=== PATIENT | male | born 1950 | race Caucasian/White ===

== ENCOUNTER 2018-07-01 23:48 | Observation (INO) | payer OTHER, MEDICARE ==
[2018-07-02 01:50] LABS: Troponin I Less than 0.010 ng/mL (< 0.028)
[2018-07-02 04:43] LABS: Troponin I Less than 0.010 ng/mL (< 0.028)
[2018-07-02] MEDS ORDERED: Ondansetron ODT 4 MG TAB SL PRN (04:59)
[2018-07-02] MEDS ORDERED: Ondansetron PF 4 MG/2 ML Vial IVP PRN ×2 (04:59→06:59)
[2018-07-02] MEDS ORDERED: Aspirin 325 MG TAB PO SCH (05:00)
[2018-07-02] MEDS ORDERED: Bisacodyl 5 MG TAB PO PRN (06:59)
[2018-07-02] MEDS ORDERED: Dextrose 5% in Water 1,000 ML IV PRN (06:59)
[2018-07-02] MEDS ORDERED: Acetaminophen 325 MG TAB PO PRN (06:59)
[2018-07-02] MEDS ORDERED: Calcium Carbonate 500 MG ChewTAB PO PRN (06:59)
[2018-07-02] MEDS ORDERED: HYDROcodone/Acetaminophen 5/325 mg Tablet PO PRN (06:59)
[2018-07-02] MEDS ORDERED: Dextrose 50% Abboject 50 ML SYRINGE SLOW IVP PRN (06:59)
[2018-07-02] MEDS ORDERED: Bisacodyl 10 MG SUPP PR PRN (06:59)
[2018-07-02] MEDS ORDERED: Zolpidem Tartrate 5 MG TAB PO PRN (06:59)
[2018-07-02] MEDS ORDERED: Loperamide HCl 2 MG CAP PO PRN (06:59)
[2018-07-02] MEDS ORDERED: HumaLOG 300 UNITS/3 ML VIAL SC PRN (06:59)
[2018-07-02] MEDS ORDERED: Ondansetron ODT 4 MG TAB PO PRN (06:59)
[2018-07-02] MEDS: Senokot S 8.6-50 MG TAB PO PRN (09:38)
[2018-07-02] MEDS: Furosemide 40 MG TAB PO SCH (09:38)
[2018-07-02] MEDS: Metoprolol Tartrate 25 MG TAB PO SCH ×2 (09:38→21:57)
[2018-07-02] MEDS: Famotidine 20 MG TAB PO SCH (09:38)
[2018-07-02] MEDS: Spironolactone 25 MG TAB PO SCH (09:39)
[2018-07-02] MEDS: Pregabalin 75 MG CAP PO SCH ×2 (09:39→21:55)
[2018-07-02] MEDS: Alogliptin 25 MG TAB PO SCH (09:39)
[2018-07-02] MEDS: Aspirin 81 mg Enteric Coated Tablet PO SCH (09:40)
[2018-07-02] MEDS: Glimepiride 4 MG TAB PO SCH ×2 (09:40→17:08)
--- NOTE | 2018-07-02 10:20 | MRI ---
MRI BRAIN WITHOUT CONTRAST: 07/02/2018 HISTORY: Syncope. Altered mental status. COMPARISON: None. TECHNIQUE: Multiplanar, multisequence MR imaging of the brain is provided without contrast. FINDINGS: The diffusion weighted imaging demonstrates no evidence for acute infarction. The axial gradient ech o imaging demonstrates no evidence for intracranial hemorrhage. The imaged paranasal sinuses and mastoid air cells demonstrate no significant opacification. Arteria l flow voids at the axial level of the skull base appear grossly unremarkable on the T2 weighted imag ing. There is mild diffuse cerebral volume loss. No midline shift, mass effect, or ventricular enlargemen t. The regional bone marrow signal intensity appears grossly unremarkable. IMPRESSION: No evidence for acute infarction or intracranial hemorrhage. POS: [facility]
--- NOTE | 2018-07-02 11:21 | HP ---
PRIMARY CARE PHYSICIAN: Dr. Amaral. REASON FOR ADMISSION: Transfer from [facility] for altered mental status. HISTORY OF PRESENT ILLNESS: A 68-year-old male who has underlying history of hypertension, diabetes, who was initially evaluated at [facility], where he was brought there for altered mental status and lethargy. The patient was not able to provide any history. The patient was evaluated at [facility]. He was given aspirin and subsequently, he was transferred to our emergency room for evaluation. When he presented to our emergency room, the patient was not able to provide any history because he was not remembering anything what happened at home. He is currently alert, but confused. He does not have any focal neurological deficit. reported to the ER physician that he was sleeping all day for last few days and he was having increasing confusion. He did not have any fever, chills, UTI symptoms, flu-like illness. He did not have any constipation, diarrhea, melena, or hematochezia. He did not have any abdominal pain. He did not have any motor weakness. REVIEW OF SYSTEMS: All review of system tried to review with the patient, but not reliable. CONSTITUTIONAL: Negative for weight loss or gain, ability to conduct usual activities. SKIN: Negative for rash, itching. EYES: Negative for double vision, pain. ENT/MOUTH: Negative for nose bleeding, neck stiffness, pain, tenderness. CARDIOVASCULAR: Negative for palpitations, dyspnea on exertion, orthopnea. RESPIRATORY: Negative for shortness of breath, wheezing, cough, hemoptysis, fever or night sweats. GASTROINTESTINAL: Negative for poor appetite, abdominal pain, heartburn, nausea, vomiting, constipation, or diarrhea. GENITOURINARY: Negative for urgency, frequency, dysuria, nocturia. MUSCULOSKELETAL: Negative for pain, swelling. NEUROLOGIC/PSYCHIATRIC: Negative for anxiety, depression. ALLERGY/IMMUNOLOGIC: Negative for skin rash, bleeding tendency. PAST MEDICAL HISTORY: Diabetes type 2, hypertension, dyslipidemia, gastroesophageal reflux disease, and neuropathy. PAST SURGICAL HISTORY: Appendicectomy, tonsillectomy, adenoidectomy, CABG, partial amputation of right thumb. PAST PSYCHIATRIC HISTORY: Reviewed and negative. SOCIAL HISTORY: The patient is , lives at home with his . He drinks alcohol occasionally. He denies any smoking. He denies any other illicit drug abuse. FAMILY HISTORY: No family history of coronary artery disease, stroke, or cancer. ALLERGIES: SULFA DRUGS. CURRENT HOME MEDICATION: 1. Glimepiride 2 mg p.o. daily. 2. Lipitor 40 mg daily. 3. Lisinopril 20 mg twice daily. 4. Lyrica 150 mg twice daily. 5. Aspirin 81 mg daily. 6. Onglyza 5 mg daily. 7. Lasix 40 mg daily. 8. Metoprolol 25 mg p.o. daily. 9. Aldactone 25 mg p.o. daily. 10. Omeprazole 40 mg p.o. daily. EMERGENCY ROOM COURSE: The patient was given aspirin at [facility] and he was given IV fluids in our emergency room. PHYSICAL EXAMINATION: VITAL SIGNS: On arrival, blood pressure 175/78, pulse 73, respiratory rate 16, temperature 99.2, saturation 95% on room air. Weight 204 pounds. GENERAL: The patient is currently alert, awake, slightly confused. No obvious acute distress. HEENT: Head; normocephalic, atraumatic. Eyes; pupils round, reactive to light. Extraocular muscles are intact. ENT; oropharynx within normal limits. Moist mucous membranes. No oral lesion. No pharyngeal erythema. No exudate. NECK: Supple. No JVD. No thyromegaly. No carotid bruit. No jugular venous distention. LUNGS: Clear to auscultation without any rhonchi or rales. CARDIAC: S1, S2 regular. No murmur. No gallop. No rub. ABDOMEN: Soft. Bowel sounds present. Nontender. Nondistended. No organomegaly. No mass. No suprapubic tenderness. BACK: Unremarkable. No CVA tenderness. EXTREMITIES: Upper extremities; passive movement of all joints are normal. Lower extremity; no edema. Good distal pulsation. SKIN: No skin rash. HEMATOLOGIC: No lymphadenopathy. PSYCHIATRIC: Normal affect. NEUROLOGIC: Nonfocal examination. He moves all four limbs. Plantar bilateral flexor. LABORATORY DATA: Significant labs: CBC; WBC 9.3, hemoglobin 11.1, platelet 219. BMP; sodium 145, potassium 4.6, chloride 109, carbon dioxide 24, BUN 33, creatinine 1.54, glucose 249, calcium 9.3. LFT; AST 17, ALT 17, alkaline phosphatase 92, albumin 4.2, TSH 0.83. Ammonia 36. Cardiac enzymes, negative x3. Urinalysis, unremarkable. CT brain, based on my review, no acute intracranial process, diffuse involutional changes noted. ASSESSMENT AND PLAN: Impression: 1. Altered mental status, unexplained. 2. Normocytic normochromic anemia. 3. Chronic kidney disease, stage 3. 4. Diabetes, type 2. 5. Hypertension. 6. Dyslipidemia. 7. Gastroesophageal reflux disease. 8. Asthma. PLAN: Observation to Stroke floor. Neurology consultation. MRI brain. Once we verify the patient's home medication, then we will resume the patient's home medication. Diabetes, hyperglycemia protocol treatment. PT evaluation. Monitor neuro status. Obtain carotid Doppler and echocardiography as a part of workup. CODE STATUS: The patient is full code. The patient's is surrogate decision maker. DISPOSITION PLAN: Based on clinical course and pending above-mentioned investigation results. Job ID: [id number]
[2018-07-02] MEDS: HumaLOG 300 UNITS/3 ML VIAL SC PRN ×2 (11:41→17:07)
--- NOTE | 2018-07-02 14:50 | ULT ---
CAROTID ULTRASOUND WITH PORTER SCALE AND DOPPLER DUPLEX COLOR FLOW IMAGING SPECTRAL ANALYSIS PERFORMED: COMPARISON: 08/23/2015. CLINICAL INDICATION: Altered mental status with a history of syncope. FINDINGS: There is scattered mild atherosclerotic calcification of the carotid arteries. PEAK SYSTOLIC VELOCITY (CM/S): Right CCA 72 Left CCA 62 Right ICA 74 Left ICA 100 There is bilateral antegrade flow within the visualized bilateral vertebral arteries. IMPRESSION: 1. No hemodynamically significant stenosis of the right internal carotid artery. 2. No hemodynamically significant stenosis of the left internal carotid artery. POS: [facility]
--- NOTE | 2018-07-02 15:12 | CON ---
DATE OF CONSULTATION: 07/02/2018 CONSULTING PHYSICIAN: Hospitalist Service. IMPRESSION: 1. 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 2. Hyperlipidemia. 3. Hypertension. 4. Diabetes. PLAN: 1. Antiplatelet and statin therapy. 2. Carotid ultrasound. 3. Repeat echocardiogram. HOSPITAL COURSE: Mr. Francois is a 68-year-old gentleman, who came in with acute change in his speech. He is unable to give me other details due to his language dysfunction. His records were reviewed. His CT scan of the brain on admission through the emergency room was unremarkable. He has a past echocardiogram done 2 years ago that showed a normal ejection fraction. He is little bit hypertensive, but otherwise has been stable. He is without any complaints of headache, nausea, vomiting, chest pain, or shortness of breath. PAST MEDICAL HISTORY: As listed above. ALLERGIES: SULFA. SOCIAL HISTORY: Unknown. FAMILY HISTORY: Unknown. REVIEW OF SYSTEMS: Otherwise negative. PHYSICAL EXAMINATION: GENERAL: He is a well-nourished, elderly gentleman, in no distress. VITAL SIGNS: Blood pressure 184/84, pulse 67, respirations 18, and temperature 98.0. HEENT: Pupils are equal and reactive. Conjunctivae clear. Oropharynx clear. NECK: Supple. No lymphadenopathy noted. EXTREMITIES: No cyanosis, clubbing, or edema. NEUROLOGIC: He was alert and cooperative. His claim investigator of language seemed to be good and he was able to follow commands appropriately. He had marked word-finding difficulty. Cranial nerve exam showed a right facial droop. Visual tejeda were intact. Motor exam showed good antigravity strength in both hands without fix or drift. Cerebellar testing shows normal [id number] and rapid alternating movements. Sensation was intact to light touch. He could stand independently. Plantar response was upgoing on the right and downgoing on the left. IMAGING STUDIES: Imaging was reviewed. LABORATORY STUDIES: CBC showed white blood cell count 9.3, hemoglobin 11.1. Coags were in normal range. Chemistry panel showed a glucose of 249. Hemoglobin A1c of 11. Lipid ratio was 6.2. Urinalysis was positive for protein, glucose, and ketones. SUMMARY: This is a 68-year-old gentleman with several cardiovascular risk factors, who presents with expressive aphasia, suggestive of left anterior parietal stroke. He has been given aspirin, and apparently, is already taking Lipitor. It is not clear whether he was taking aspirin prior to admission; therefore, he might need to be advanced to Plavix depending on the history of prior medication use. We will follow up on the results of his testing. Job ID: [id number]
[2018-07-02] MEDS ORDERED: Atorvastatin Calcium 40 MG TAB PO SCH (21:00)
[2018-07-03 07:35] VITALS: BP 129/68; TEMP 98.2
[2018-07-03] MEDS: Alogliptin 25 MG TAB PO SCH (09:09)
[2018-07-03] MEDS: Senokot S 8.6-50 MG TAB PO PRN (09:09)
[2018-07-03] MEDS: Famotidine 20 MG TAB PO SCH (09:09)
[2018-07-03] MEDS: Furosemide 40 MG TAB PO SCH (09:09)
[2018-07-03] MEDS: Spironolactone 25 MG TAB PO SCH (09:10)
[2018-07-03] MEDS: Pregabalin 75 MG CAP PO SCH (09:10)
[2018-07-03] MEDS: Glimepiride 4 MG TAB PO SCH (09:10)
[2018-07-03] MEDS: Aspirin 81 mg Enteric Coated Tablet PO SCH (09:10)
[2018-07-03] MEDS: Metoprolol Tartrate 25 MG TAB PO SCH (09:10)
[2018-07-03] MEDS ORDERED: Fleet Enema 133 ML BOT PR SCH (10:30)
--- NOTE | 2018-07-03 10:49 | DIS ---
DATE OF ADMISSION: 07/02/2018 DATE OF DISCHARGE: 07/03/2018 PRIMARY CARE PHYSICIAN: Dr. Amaral. DISCHARGE DISPOSITION: Home. PRIMARY DISCHARGE DIAGNOSIS: Altered mental status, resolved, ruled out cerebrovascular accident. SECONDARY DISCHARGE DIAGNOSES: Hypertension, gastroesophageal reflux disease, dyslipidemia, diabetes type 2, chronic kidney disease stage 3, asthma, anemia, normocytic normochromic, obesity with body mass index 30. PRIMARY PROCEDURE/OPERATION: None. RADIOLOGICAL INVESTIGATION: CT brain was done at [place], which was negative for any acute process. MRI brain was negative for any acute stroke. Echocardiography showed normal EF. Carotid Doppler negative for any stenosis. SIGNIFICANT LABORATORY DATA: WBC 9.3, hemoglobin 11.1, platelets 219. INR 1.0. Sodium 145, potassium 4.6, BUN 33, creatinine 1.54, calcium 9.3, and LDL 102. DISCHARGE MEDICATIONS: 1. Aspirin 81 mg p.o. daily. 2. Lipitor 80 mg p.o. at bedtime. 3. Lasix 40 mg daily. 4. Glimepiride 4 mg p.o. b.i.d. 5. Metoprolol 25 mg p.o. b.i.d. 6. Lyrica 150 mg p.o. b.i.d. 7. Onglyza one tablet daily. 8. Aldactone 25 mg p.o. daily. CONTRAINDICATION: None. CODE STATUS: Full code. INPATIENT PARKING CONTROL OFFICER: Dr. Donnie Lynch, neurologist was consulted while in the hospital. TEST RESULTS PENDING ON DISCHARGE: None. ALLERGIES: SULFA DRUGS. DISCHARGE PLAN: Post hospital, the patient will follow up with primary care physician in one week. HOSPITAL COURSE: A 68-year-old male with above-mentioned medical problem, who was admitted by me yesterday. Please see my HPI for further details. The patient was having altered mental status. He had some speech changes. He was having some language dysfunction. He was initially evaluated in the emergency room with a CT of brain, which was negative. We admitted this patient in the hospital at Stroke floor and his neuro examination was normal. We did MRI brain, which was negative for any stroke. We also did a carotid Doppler, which was also normal. Echocardiography was also unremarkable. While in the hospital, the patient had transient asymptomatic run of AIVR. The patient is currently already on optimum medical therapy. We did not change his medication. We continued all his previous home medication. The patient is seen and examined at bedside today. PHYSICAL EXAMINATION: VITAL SIGNS: His vitals are stable. Currently, temperature 98.2, pulse 67, respiratory rate 16, saturation 96%, blood pressure 129/68. Weight 207 pounds. GENERAL: The patient is currently alert, oriented x3. NECK: Supple. No JVD. LUNGS: Clear to auscultation without any rhonchi. CARDIAC: S1 and S2 regular without any murmur. ABDOMEN: Soft and benign without any tenderness. EXTREMITIES: No edema. NEUROLOGIC: Nonfocal examination. The patient is medically stable for discharge today. All review of systems reviewed with him and negative. During this admission course, we have completely ruled out stroke. Job ID: [id number]
== END 2018-07-03 11:40 | disposition home or self-care (01) ==
LOC: ERS 23:48 → 2SE 07-02 00:55
PROVIDERS: ADMIT Hospitalist; ATTEND Hospitalist
DX: R41.82 Altered mental status, unspecified (principal); R53.83 Other fatigue; E78.5 Hyperlipidemia, unspecified; K21.9 Gastro-esophageal reflux disease without esophagitis; E11.40 Type 2 diabetes mellitus with diabetic neuropathy, unspecified; I12.9 Hypertensive chronic kidney disease with stage 1 through stage 4 chronic kidney disease, or unspecified chronic kidney disease; E11.22 Type 2 diabetes mellitus with diabetic chronic kidney disease; N18.3 Chronic kidney disease, stage 3 (moderate); D63.1 Anemia in chronic kidney disease; J45.909 Unspecified asthma, uncomplicated; E66.9 Obesity, unspecified; Z68.30 Body mass index [BMI] 30.0-30.9, adult; Z79.82 Long term (current) use of aspirin; Z79.84 Long term (current) use of oral hypoglycemic drugs; Z79.899 Other long term (current) drug therapy; Z88.2 Allergy status to sulfonamides; Z95.1 Presence of aortocoronary bypass graft
CPT/HCPCS: 36415; 36416; 70551; 84484; 93306; 93880; 96360; 96361; G0378; G8978-GP-CJ; G8979-GP-CJ; G8980-GP-CJ

== ENCOUNTER 2019-03-30 13:48 | Outpatient (CLI) | payer MEDICARE, BC | END 2019-03-30 13:49 | disposition home or self-care (01) | LOC: DTY/OP 13:48 | PROVIDERS: ATTEND Internal Medicine | DX: E11.22 Type 2 diabetes mellitus with diabetic chronic kidney disease (principal); N18.9 Chronic kidney disease, unspecified | CPT/HCPCS: 97802 ==

== ENCOUNTER 2022-07-01 18:33 | Inpatient (IN) | payer OTHER ==
[2022-07-01 20:16] VITALS: BMI 34.8
[2022-07-01] MEDS ORDERED: Heparin 25,000 units/D5W 500 ML IVPB SCH (23:00)
[2022-07-01] MEDS ORDERED: Heparin 10,000 UNITS/ 10 ML VIAL SLOW IVP SCH (23:00)
[2022-07-01] MEDS ORDERED: Acetaminophen 325 MG TAB PO PRN (23:01)
[2022-07-01] MEDS ORDERED: Ondansetron PF 4 MG/2 ML Vial IVP PRN (23:01)
[2022-07-01] MEDS ORDERED: Ondansetron ODT 4 MG TAB PO PRN (23:01)
[2022-07-01] MEDS ORDERED: Dextrose 50% Abboject 50 ML SYRINGE SLOW IVP PRN (23:04)
[2022-07-01] MEDS ORDERED: Dextrose 5% in Water 1,000 ML IV PRN (23:04)
[2022-07-01] MEDS ORDERED: HumaLOG 300 UNITS/3 ML VIAL SC PRN (23:04)
[2022-07-01] MEDS ORDERED: Vancomycin 1 GM in Premix Bag 1 BAG IVPB SCH (23:59)
[2022-07-02] MEDS: Sodium Chloride 0.9% 1,000 ML IV SCH ×2 (00:07→20:00)
[2022-07-02 00:08] LABS: Hemoglobin 10.5 g/dL (14.0-18.0); Platelet Count 133 10x3/uL (130-400)
[2022-07-02 00:43] LABS: PTT 138.5 sec (22.9-36.1)
[2022-07-02 00:54] LABS: CKMB 5.2 ng/mL (0-6.6)
[2022-07-02] MEDS: Vancomycin HCl 1.25 GM in Sodium Chloride 0.9% 250 ML 250 ML IVPB SCH (01:29)
[2022-07-02 03:44] LABS: Critical Call Chem Troponin I RESULT DECREASING
[2022-07-02 04:02] LABS: CKMB 5.9 ng/mL (0-6.6)
[2022-07-02 05:52] LABS: #Basophils 0.1 thou/uL (0.0-0.2); #Lymphocytes 3.6 thou/uL (1.20-3.40); #Monocytes 0.9 thou/uL (0.11-0.59); #Neutrophils 10.3 thou/uL (1.40-6.50); %Basophils 0.4 % (0.0-1.0); %Eosinophils 0.2 % (0.0-10.0); %Lymphocytes 24.2 % (21.0-51.0); %Neutrophils 69.2 % (42.0-75.0); Hemoglobin 9.4 g/dL (14.0-18.0); Mean Corpuscular HGB CONC 32.4 g/dL (32.0-36.0); Mean Corpuscular Hemoglobin 30.8 pg (27.0-31.0); Mean Corpuscular Volume 95.2 fl (78.0-98.0); Mean Platelet Volume 8.7 fL (7.4-10.4); Platelet Count 129 10x3/uL (130-400); RBC Distribution Width 13.9 % (11.5-14.5); Red Blood Cell (RBC) Count 3.04 mill/uL (4.70-6.10); White Blood Cell (WBC) Count 14.9 10x3/uL (4.8-10.8)
[2022-07-02 06:09] LABS: Anion Gap 11 mmol/L (10-20); BUN (Urea Nitrogen) 31 mg/dL (8.4-25.7); Calc. Creatinine Clearance 59 mL/min (70-130); Calcium 7.4 mg/dL (7.8-10.44); Carbon Dioxide 19 mmol/L (23-31); Chloride 110 mmol/L (98-107); Estimated GFR 43; Glucose 107 mg/dL (83-110); Magnesium 1.4 mg/dL (1.6-2.6); Potassium 4.3 mmol/L (3.5-5.1); Sodium 136 mmol/L (136-145)
[2022-07-02] MEDS: Famotidine 20 MG TAB PO SCH (09:29)
[2022-07-02] MEDS ORDERED: hydrALAZINE 20 MG/ML VIAL SLOW IVP PRN (12:25)
[2022-07-02] MEDS ORDERED: Cefepime 2 GM in Sodium Chloride 0.9% 100 ML IVPB SCH (17:00)
[2022-07-02] MEDS: Atorvastatin Calcium 40 MG TAB PO SCH (20:00)
[2022-07-02] MEDS: Metoprolol Tartrate 25 MG TAB PO SCH (20:00)
[2022-07-02] MEDS ORDERED: Enoxaparin Sodium 80 MG/0.8 ML SYRINGE SC SCH (21:00)
[2022-07-03 00:09] LABS: Vancomycin, Trough 11.9 ug/mL
[2022-07-03] MEDS: VANCOMYCIN 1.75 GM/500 ML BAG 1.75 GM in Premix Bag 1 BAG IVPB SCH (00:50)
[2022-07-03] MEDS: Sodium Chloride 0.9% 1,000 ML IV SCH ×2 (00:51→13:58)
[2022-07-03] MEDS: Vancomycin HCl 1.25 GM in Sodium Chloride 0.9% 250 ML 250 ML IVPB SCH (01:00)
[2022-07-03 05:39] LABS: #Lymphocytes 3.3 thou/uL (1.20-3.40); #Monocytes 0.9 thou/uL (0.11-0.59); #Neutrophils 8.5 thou/uL (1.40-6.50); %Basophils 0.3 % (0.0-1.0); %Eosinophils 0.1 % (0.0-10.0); %Lymphocytes 25.7 % (21.0-51.0); %Neutrophils 66.9 % (42.0-75.0); Hemoglobin 9.5 g/dL (14.0-18.0); Mean Corpuscular HGB CONC 32.1 g/dL (32.0-36.0); Mean Corpuscular Hemoglobin 30.4 pg (27.0-31.0); Mean Corpuscular Volume 94.5 fl (78.0-98.0); Mean Platelet Volume 8.6 fL (7.4-10.4); Platelet Count 131 10x3/uL (130-400); RBC Distribution Width 13.9 % (11.5-14.5); Red Blood Cell (RBC) Count 3.13 mill/uL (4.70-6.10); White Blood Cell (WBC) Count 12.7 10x3/uL (4.8-10.8)
[2022-07-03 05:57] LABS: Anion Gap 10 mmol/L (10-20); BUN (Urea Nitrogen) 24 mg/dL (8.4-25.7); Calc. Creatinine Clearance 77 mL/min (70-130); Calcium 7.8 mg/dL (7.8-10.44); Carbon Dioxide 22 mmol/L (23-31); Chloride 109 mmol/L (98-107); Estimated GFR 59; Glucose 168 mg/dL (83-110); Magnesium 1.7 mg/dL (1.6-2.6); Sodium 137 mmol/L (136-145)
[2022-07-03] MEDS: HumaLOG 300 UNITS/3 ML VIAL SC PRN (06:33)
[2022-07-03] MEDS ORDERED: hydrALAZINE 20 MG/ML VIAL SLOW IVP PRN (10:43)
[2022-07-03] MEDS: Metoprolol Tartrate 25 MG TAB PO SCH ×2 (13:35→21:18)
[2022-07-03] MEDS: Famotidine 20 MG TAB PO SCH ×2 (13:59→21:18)
[2022-07-03] MEDS: Enoxaparin Sodium 30 MG/0.3 ML SYRINGE SC SCH (21:17)
[2022-07-03] MEDS: Atorvastatin Calcium 40 MG TAB PO SCH (21:18)
[2022-07-04] MEDS: VANCOMYCIN 1.75 GM/500 ML BAG 1.75 GM in Premix Bag 1 BAG IVPB SCH (01:47)
[2022-07-04 06:03] LABS: #Lymphocytes 3.3 thou/uL (1.20-3.40); #Neutrophils 10.1 thou/uL (1.40-6.50); %Basophils 0.1 % (0.0-1.0); %Eosinophils 0.1 % (0.0-10.0); %Neutrophils 69.8 % (42.0-75.0); Hemoglobin 9.4 g/dL (14.0-18.0); Mean Corpuscular HGB CONC 31.7 g/dL (32.0-36.0); Mean Corpuscular Hemoglobin 29.7 pg (27.0-31.0); Mean Corpuscular Volume 93.7 fl (78.0-98.0); Mean Platelet Volume 8.9 fL (7.4-10.4); Platelet Count 150 10x3/uL (130-400); RBC Distribution Width 13.9 % (11.5-14.5); Red Blood Cell (RBC) Count 3.17 mill/uL (4.70-6.10); White Blood Cell (WBC) Count 14.5 10x3/uL (4.8-10.8)
[2022-07-04 06:21] LABS: Anion Gap 14 mmol/L (10-20); BUN (Urea Nitrogen) 22 mg/dL (8.4-25.7); Calc. Creatinine Clearance 77 mL/min (70-130); Calcium 8.2 mg/dL (7.8-10.44); Carbon Dioxide 19 mmol/L (23-31); Chloride 109 mmol/L (98-107); Estimated GFR 59; Glucose 229 mg/dL (83-110); Potassium 3.9 mmol/L (3.5-5.1); Sodium 138 mmol/L (136-145)
[2022-07-04] MEDS ORDERED: Furosemide 40 MG TAB PO SCH (09:00)
[2022-07-04] MEDS: Famotidine 20 MG TAB PO SCH (09:09)
[2022-07-04] MEDS: Metoprolol Tartrate 25 MG TAB PO SCH (09:10)
[2022-07-04] MEDS: Enoxaparin Sodium 30 MG/0.3 ML SYRINGE SC SCH (09:10)
[2022-07-04] MEDS: HumaLOG 300 UNITS/3 ML VIAL SC PRN (12:52)
[2022-07-04 15:50] VITALS: BP 145/71; TEMP 99
[2022-07-04] MEDS ORDERED: Glimepiride 4 MG TAB PO SCH (16:30)
== END 2022-07-04 16:41 | disposition home or self-care (01) | DRG 871 ==
LOC: NEURO 20:02
PROVIDERS: ADMIT Internal Medicine; ATTEND Internal Medicine
DX: A41.89 Other specified sepsis (principal); G93.41 Metabolic encephalopathy; I21.4 Non-ST elevation (NSTEMI) myocardial infarction; L03.115 Cellulitis of right lower limb; R65.20 Severe sepsis without septic shock; N18.2 Chronic kidney disease, stage 2 (mild); D63.1 Anemia in chronic kidney disease; E11.22 Type 2 diabetes mellitus with diabetic chronic kidney disease; J45.909 Unspecified asthma, uncomplicated; I25.10 Atherosclerotic heart disease of native coronary artery without angina pectoris; I12.9 Hypertensive chronic kidney disease with stage 1 through stage 4 chronic kidney disease, or unspecified chronic kidney disease; Z79.84 Long term (current) use of oral hypoglycemic drugs; Z28.21 Immunization not carried out because of patient refusal; Z88.2 Allergy status to sulfonamides; Z79.899 Other long term (current) drug therapy; Z95.1 Presence of aortocoronary bypass graft
CPT/HCPCS: 36415; 36416; 71045; 80048; 80202; 82140; 82553; 83605; 83735; 84443; 84484; 85014; 85018; 85025; 85049; 85730; 93306; J0360; J0692; J1644; J1650; J3370; J3475; J3490; J7050